=== PATIENT | female | born 1950 | race Caucasian/White ===

== ENCOUNTER → 2019-10-07 | Outpatient (CLI) | payer MEDICARE, OTHER ==
[~2019-10-07] MED LIST: AMLO25TA PO; B-12100021 PO; CATA0.2T PO; COLE1TA PO; LEVO50TA5 PO; LOSA50TA88 PO; MELA5CAP2 PO; MELO15TA28 PO; METO1TAB87 PO; MULTCAP PO; OMEP40CA97 PO; SERT-141 PO; SUCR1TA PO; VALA1TAB5 PO; VITA50005 PO; ZETI10TA16 PO
--- NOTE | 2019-10-07 16:07 | REP ---
Clinical: Melena. Diarrhea. Technique: Single supine view of the abdomen and pelvis. Findings: Bowel gas pattern is nonspecific. No organomegaly. Skeletal structures are intact. Calcifications in the pelvis suggest small fibroid and phleboliths. Impression: Nonspecific bowel gas pattern. Electronically Signed by Van Morin MD 10/07/2019 03:59 P
[2019-10-07 16:38] LABS: BASO % 0.6 % (0.0-1.0); EOS # 0.1 10^3/uL (0.0-0.5); EOS % 2.2 % (0.0-3.0); HEMATOCRIT 38.6 % (36.0-47.0); HEMOGLOBIN 12.7 g/dl (12.0-15.5); LYMPH # 1.5 10^3/uL (1.5-5.0); LYMPH % 29.2 % (24.0-44.0); MEAN CORPUSCULAR HGB CONC 32.9 g/dl (32.0-36.5); MEAN CORPUSCULAR VOLUME 94.1 fl (80.0-96.0); MONO # 0.4 10^3/uL (0.0-0.8); MONO % 8.5 % (0.0-5.0); NEUTROPHILS # 2.9 10^3/uL (1.5-8.5); NEUTROPHILS % 58.3 % (36.0-66.0); PLATELET COUNT, AUTOMATED 211 10^3/uL (150-450)
[2019-10-07 17:02] LABS: ALBUMIN 3.7 GM/DL (3.2-5.2); BILIRUBIN,TOTAL 0.3 MG/DL (0.2-1.0); CALCIUM LEVEL 8.8 MG/DL (8.8-10.2); CREATININE FOR GFR 1.27 MG/DL (0.55-1.30); GLOMERULAR FILTRATION RATE 44.3 (>39); TOTAL PROTEIN 7.8 GM/DL (6.4-8.2)
== END ==
LOC: M WUC 15:33
PROVIDERS: ATTEND Physician Assistant
DX: K92.1 Melena (principal); R19.7 Diarrhea, unspecified

== ENCOUNTER 2019-10-11 08:36 | Emergency (ER) | payer MEDICARE, OTHER ==
[~2019-10-11] VITALS: Ht 167.6 cm; Wt 64.5 kg
[2019-10-11] MEDS ORDERED: MELA5CAP2 PO (08:54)
[2019-10-11] MEDS ORDERED: COLE1TA PO (08:54)
[2019-10-11] MEDS ORDERED: VITA50005 PO (08:54)
[2019-10-11] MEDS ORDERED: ZETI10TA16 PO (08:54)
[2019-10-11] MEDS ORDERED: MULTCAP PO (08:54)
[2019-10-11] MEDS ORDERED: AMLO25TA PO (08:54)
[2019-10-11] MEDS ORDERED: OMEP40CA97 PO (08:54)
[2019-10-11] MEDS ORDERED: LEVO50TA5 PO (08:54)
[2019-10-11] MEDS ORDERED: VALA1TAB5 PO (08:54)
[2019-10-11] MEDS ORDERED: B-12100021 PO (08:54)
[2019-10-11] MEDS ORDERED: METO1TAB87 PO (08:54)
[2019-10-11] MEDS ORDERED: CATA0.2T PO (08:54)
[2019-10-11] MEDS ORDERED: LOSA50TA88 PO (08:54)
[2019-10-11] MEDS ORDERED: MELO15TA28 PO (08:54)
[2019-10-11] MEDS ORDERED: SERT-141 PO (08:54)
[2019-10-11 10:04] LABS: BASO % 0.3 % (0.0-1.0); EOS # 0.1 10^3/uL (0.0-0.5); EOS % 1.2 % (0.0-3.0); HEMATOCRIT 41.8 % (36.0-47.0); HEMOGLOBIN 14.2 g/dl (12.0-15.5); LYMPH # 1.3 10^3/uL (1.5-5.0); LYMPH % 20.6 % (24.0-44.0); MEAN CORPUSCULAR HEMOGLOBIN 31.3 pg (27.0-33.0); MEAN CORPUSCULAR VOLUME 92.3 fl (80.0-96.0); MONO # 0.4 10^3/uL (0.0-0.8); MONO % 6.7 % (0.0-5.0); NEUTROPHILS # 4.3 10^3/uL (1.5-8.5); PLATELET COUNT, AUTOMATED 216 10^3/uL (150-450); RED BLOOD COUNT 4.53 10^6/uL (4.00-5.40); WHITE BLOOD COUNT 6.1 10^3/uL (4.0-10.0)
[2019-10-11 10:14] LABS: INR 1.01
[2019-10-11 10:15] LABS: PARTIAL THROMBOPLASTIN TIME 26.9 SECONDS (25.0-38.4)
[2019-10-11 10:26] LABS: ALBUMIN 4.1 GM/DL (3.2-5.2); BILIRUBIN,DIRECT 0.2 MG/DL (0.0-0.2); BILIRUBIN,TOTAL 0.6 MG/DL (0.2-1.0); TOTAL PROTEIN 8.2 GM/DL (6.4-8.2)
[2019-10-11] MEDS ORDERED: ISOVUE-370 76% 100ML VIAL As Ordered ONE (11:17)
--- NOTE | 2019-10-11 13:33 | REP ---
CHEST, SINGLE VIEW: Single view of the chest is performed. No acute infiltrate is seen. There is minimal biapical pleural thickening. The heart is not enlarged. There is mild tortuosity of the thoracic aorta. Metallic plate and screws are seen in the lower cervical spine. IMPRESSION: No acute pulmonary disease. Electronically Signed by Luis Camacho MD 10/11/2019 07:38 P
[2019-10-11 14:25] VITALS: BP 151/69
[2019-10-11] MEDS ORDERED: SUCR1TA PO (14:41)
--- NOTE | 2019-10-11 15:48 | REP ---
REASON FOR EXAM: Abdominal pain. No priors for comparison. CONTRAST: 100 mL Isovue 370. For description of the lung bases see CT chest the same day. The liver, gallbladder, spleen, pancreas, and adrenal glands are within normal limits. There is right renal scarring. There is left-sided hydronephrosis without hydroureter. There are no nephroliths or calculi in the left renal collecting system. There are no urinary or bladder calcifications. There are bilateral pelvic phleboliths. The abdominal aorta and paraaortic regions are within normal limits. There is no free fluid or free air in the abdomen or pelvis. Limited evaluation of the intra-abdominal and intrapelvic bowel loops and their mesenteries show no gross abnormalities. Bone window technique through the examination shows the osseous structures to be within normal limits for the patient's age. IMPRESSION: 1. Left-sided hydronephrosis possibly secondary to functional UPJ configuration or from proximal ureteral obstruction due to a different etiology. There is no hydroureter and there are no abnormal calculi. 2. Right renal scarring, which is chronic. 3. Other findings as described above. Electronically Signed by Mike Cook DO 10/11/2019 05:29 P
--- NOTE | 2019-10-11 15:58 | REP ---
CT ANGIOGRAM CHEST: TECHNIQUE: Axial contrast-enhanced images from the thoracic inlet to the upper abdomen using 100 mL Isovue-370 intravenous contrast material with multiplanar reformations. There is no CT evidence of pulmonary embolism. There is no thoracic aortic aneurysm or dissection. The heart is not enlarged. There is no pleural or pericardial effusion. There is no significant mediastinal, hilar or chest wall lymphadenopathy. There is a small hiatal hernia. There are mild diffuse interstitial fibrotic changes with dependent fibroatelectasis in the left posterior costophrenic sulcus. There is mild biapical pleural thickening. There are several bilateral subcentimeter nodular opacities present. In the right upper lobe on image 24, there is a 6 mm nodule, also in the right upper lobe on image 28, there is a 6 mm nodule, in the right lower lobe posteriorly, there is a 5 mm nodular density on image 43 and another 6 mm nodular density, which is pleural-based in the right lower lobe on imaged 60. In the left upper lobe, there is a 3 mm nodular density on image 19, in the left lower lobe along the major fissure laterally there is a 4 mm nodular density on image 37, in the lingula on image 71, there is a 3 mm nodular density. There are degenerative change of the spine. Metallic plate and screws are seen in the lower cervical spine. IMPRESSION: No CT evidence of pulmonary embolism or aortic dissection. Small hiatal hernia. Several subcentimeter nodules in the lungs. Largest is 6 mm in diameter. Recommend followup CT in 3-6 months. Electronically Signed by Luis Camacho MD 10/11/2019 07:51 P
--- NOTE | 2019-10-11 21:20 | ECGEPIP ---
[facility] - ED Test Date: 2019-10-11 Pat Name: CARLEY DOWNEY Department: Room: - Gender: Female [employer] Administrator: Rivera CASTANON : 1950 Requested By: YESENIA Rincon Order Number: [id number] Reading MD: Wali Herrera Measurements Intervals [place] Rate: 64 P: 55 ID: [id number] QRS: 64 QRSD: 81 T: 48 QT: 386 QTc: 399 Interpretive Statements SINUS RHYTHM NO PRIORS FOR COMPARISON Electronically Signed on 10-11-2019 21:20:46 EDT by Wali Herrera
--- NOTE | 2019-10-13 15:19 | ED PDOC ---
Post-Departure Follow-Up izabela gordon faxed formal report of cta chest for fu Jane Mason MD Oct 13, 2019 15:19
== END 2019-10-11 14:51 | disposition home or self-care (01) ==
LOC: M ED 08:36
DX: I87.8 Other specified disorders of veins (principal); N28.89 Other specified disorders of kidney and ureter; R91.8 Other nonspecific abnormal finding of lung field; N13.30 Unspecified hydronephrosis; K21.0 Gastro-esophageal reflux disease with esophagitis; K52.9 Noninfective gastroenteritis and colitis, unspecified; I10 Essential (primary) hypertension; G47.33 Obstructive sleep apnea (adult) (pediatric); Z79.899 Other long term (current) drug therapy
CPT/HCPCS: 36415; 71045; 71275; 74177; 80047; 80076; 81001; 82150; 83605; 83690; 84484; 85025; 85610; 85730; 86850; 86900; 86901; 93005; 93041; 99284; Q9967

== ENCOUNTER → 2019-10-25 | Outpatient (REF) | payer MEDICARE, OTHER ==
[~2019-10-25] MED LIST changes: +FAMO20TA PO; +PANT40TA29 PO
== END ==
LOC: M LAB REF 11:18
PROVIDERS: ATTEND Physician Assistant
DX: R19.7 Diarrhea, unspecified (principal)

== ENCOUNTER → 2019-11-25 | Outpatient (CLI) | payer MEDICARE, OTHER | LOC: M LABSMTC 09:50 | PROVIDERS: ATTEND Anesthesiology | DX: Z01.812 Encounter for preprocedural laboratory examination (principal); Z20.828 Contact with and (suspected) exposure to other viral communicable diseases ==

== ENCOUNTER 2019-11-30 08:04 | Day surgery (SDC) | payer MEDICARE, OTHER ==
[~2019-11-30] VITALS: Ht 167.6 cm; Wt 63.0 kg
[~2019-11-30 08:04] MED LIST changes: +LIDOCAINE 2% 100MG/5ML SDV (FOR ANES.) As Ordered ONE; +NS 1,000 ML IV ONE; +propofoL 200 MG/20 ML VIAL As Ordered ONE
[2019-11-30] MEDS ORDERED: ePHEDrine SULFATE 25 MG/5 ML(5MG/ML) SYRINGE As Ordered ONE (09:36)
[2019-11-30 10:20] VITALS: BP 124/72
--- NOTE | 2019-12-14 11:30 | ROOR ---
Patient Name: Barbra Cornejo Procedure Date: 11/30/2019 8:32 AM Date of : 1950 Age: 69 Room: [facility] Gender: Female Note Status: Finalized Procedure: Upper GI endoscopy Indications: Heartburn, Suspected esophageal reflux, Abdominal bloating Providers: Eran Tomlinson MD Referring MD: 1. No Referring Physician 1. No Referring Physician, Admin. Requesting Provider: Medicines: Monitored Anesthesia Care Complications: No immediate complications. Procedure: Pre-Anesthesia Assessment: - Prior to the procedure, a History and Physical was performed, and patient medications and allergies were reviewed. The patient is competent. The risks and benefits of the procedure and the sedation options and risks were discussed with the patient. All questions were answered and informed consent was obtained. Patient identification and proposed procedure were verified by the physician, the nurse and the anesthesiologist in the endoscopy suite. Mental Status Examination: alert and oriented. Airway Examination: normal oropharyngeal airway and neck mobility. Respiratory Examination: clear to auscultation. CV Examination: normal. Prophylactic Antibiotics: The patient does not require prophylactic antibiotics. Prior Anticoagulants: The patient has taken no previous anticoagulant or antiplatelet agents. ASA Grade Assessment: III - A patient with severe systemic disease. After reviewing the risks and benefits, the patient was deemed in satisfactory condition to undergo the procedure. The anesthesia plan was to use monitored anesthesia care (MAC). Immediately prior to administration of medications, the patient was re-assessed for adequacy to receive sedatives. The heart rate, respiratory rate, oxygen saturations, blood pressure, adequacy of pulmonary ventilation, and response to care were monitored throughout the procedure. The physical status of the patient was re-assessed after the procedure. The Endoscope was introduced through the mouth, and advanced to the second part of duodenum. The upper GI endoscopy was accomplished without difficulty. The patient tolerated the procedure well. Findings: A small hiatal hernia was present. The Z-line was regular and was found 37 cm from the incisors. This was biopsied with a cold forceps for histology. Estimated blood loss was minimal. Diffuse mild mucosal changes characterized by flattening, granularity and nodularity were found in the gastric body and in the gastric antrum. Biopsies were taken with a cold forceps for Helicobacter pylori testing. Estimated blood loss was minimal. The duodenal bulb, first portion of the duodenum and second portion of the duodenum were normal. Impression: - Small hiatal hernia. - Z-line regular, 37 cm from the incisors. Biopsied. - Flattened, granular and nodular mucosa in the gastric body and antrum. Biopsied. - Normal duodenal bulb, first portion of the duodenum and second portion of the duodenum. Recommendation: - Discharge patient to home (ambulatory). - Continue present medications. - Await pathology results. - Telephone my office for pathology results in 1 week. Eran Tomlinson MD 11/30/2019 9:55:58 AM Number of Addenda: 0 Note Initiated On: 11/30/2019 8:32 AM Estimated Blood Loss: Estimated blood loss was minimal.
--- NOTE | 2019-12-14 11:30 | ROOR ---
Patient Name: Barbra Cornejo Procedure Date: 11/30/2019 8:31 AM Date of : 1950 Age: 69 Room: [facility] Gender: Female Note Status: Finalized Procedure: Colonoscopy Indications: Generalized abdominal pain, Change in bowel habits, Chronic diarrhea Providers: Eran Tomlinson MD Referring MD: 1. No Referring Physician 1. No Referring Physician, Admin. Requesting Provider: Medicines: Monitored Anesthesia Care Complications: No immediate complications. Procedure: Pre-Anesthesia Assessment: - Prior to the procedure, a History and Physical was performed, and patient medications and allergies were reviewed. The patient is competent. The risks and benefits of the procedure and the sedation options and risks were discussed with the patient. All questions were answered and informed consent was obtained. Patient identification and proposed procedure were verified by the physician, the nurse and the anesthesiologist in the endoscopy suite. Mental Status Examination: alert and oriented. Airway Examination: normal oropharyngeal airway and neck mobility. Respiratory Examination: clear to auscultation. CV Examination: normal. Prophylactic Antibiotics: The patient does not require prophylactic antibiotics. Prior Anticoagulants: The patient has taken no previous anticoagulant or antiplatelet agents. ASA Grade Assessment: III - A patient with severe systemic disease. After reviewing the risks and benefits, the patient was deemed in satisfactory condition to undergo the procedure. The anesthesia plan was to use monitored anesthesia care (MAC). Immediately prior to administration of medications, the patient was re-assessed for adequacy to receive sedatives. The heart rate, respiratory rate, oxygen saturations, blood pressure, adequacy of pulmonary ventilation, and response to care were monitored throughout the procedure. The physical status of the patient was re-assessed after the procedure. The Colonoscope was introduced through the anus and advanced to the terminal ileum, with identification of the appendiceal orifice and IC valve. The colonoscopy was performed without difficulty. The patient tolerated the procedure well. The quality of the bowel preparation was good. Findings: Hemorrhoids were found on perianal exam. The colon (entire examined portion) appeared normal. This was biopsied with a cold forceps for evaluation of microscopic colitis. Estimated blood loss was minimal. The terminal ileum appeared normal. This was biopsied with a cold forceps for evaluation of celiac disease. Impression: - Hemorrhoids found on perianal exam. - The entire examined colon is normal. Biopsied. - The examined portion of the ileum was normal. Biopsied. Recommendation: - Discharge patient to home (ambulatory). - High fiber diet indefinitely. Eran Tomlinson MD 11/30/2019 10:00:30 AM Number of Addenda: 0 Note Initiated On: 11/30/2019 8:31 AM Estimated Blood Loss: Estimated blood loss was minimal.
== END 2019-11-30 10:32 | disposition home or self-care (01) ==
LOC: M OPP 08:04
PROVIDERS: ATTEND Surgery
DX: K64.8 Other hemorrhoids (principal); R10.84 Generalized abdominal pain; R19.4 Change in bowel habit; R50.9 Fever, unspecified; K44.9 Diaphragmatic hernia without obstruction or gangrene; K31.89 Other diseases of stomach and duodenum; R12 Heartburn; R14.0 Abdominal distension (gaseous); G47.30 Sleep apnea, unspecified; K21.9 Gastro-esophageal reflux disease without esophagitis; Z79.899 Other long term (current) drug therapy

== ENCOUNTER → 2020-08-31 | Outpatient (REF) | payer MEDICARE, OTHER ==
[~2020-08-31] MED LIST changes: -LIDOCAINE 2% 100MG/5ML SDV (FOR ANES.) As Ordered ONE; -NS 1,000 ML IV ONE; -propofoL 200 MG/20 ML VIAL As Ordered ONE
== END ==
LOC: M LAB REF 09:52
PROVIDERS: ATTEND Physician Assistant
DX: R19.7 Diarrhea, unspecified (principal)

== ENCOUNTER 2020-09-07 09:21 | Emergency (ER) | payer MEDICARE, OTHER ==
[~2020-09-07] VITALS: Ht 165.1 cm; Wt 63.4 kg
[2020-09-07 09:21] VITALS: BP 147/68
[2020-09-07] MEDS ORDERED: ZOLO50TA PO (09:37)
[2020-09-07] MEDS ORDERED: FAMO20TA PO (09:37)
[2020-09-07] MEDS ORDERED: CLON0.2T PO (09:37)
[2020-09-07] MEDS ORDERED: VALA1TAB5 PO ×2 (09:37)
[2020-09-07] MEDS ORDERED: OMEP40CA97 PO (09:37)
[2020-09-07] MEDS ORDERED: CELE1CAP9 PO (09:37)
[2020-09-07] MEDS ORDERED: DICY10CA13 PO (09:38)
[2020-09-07 10:49] LABS: BASO % 0.4 % (0.0-1.0); EOS # 0.1 10^3/uL (0.0-0.5); EOS % 1.2 % (0.0-3.0); HEMATOCRIT 40.4 % (36.0-47.0); HEMOGLOBIN 13.5 g/dl (12.0-15.5); LYMPH # 1.2 10^3/uL (1.5-5.0); MEAN CORPUSCULAR HGB CONC 33.4 g/dl (32.0-36.5); MEAN CORPUSCULAR VOLUME 92.9 fl (80.0-96.0); MONO # 0.4 10^3/uL (0.0-0.8); NEUTROPHILS # 3.4 10^3/uL (1.5-8.5); NEUTROPHILS % 67.2 % (36.0-66.0); PLATELET COUNT, AUTOMATED 218 10^3/uL (150-450); RED BLOOD COUNT 4.35 10^6/uL (4.00-5.40)
[2020-09-07 11:18] LABS: ALBUMIN 3.7 GM/DL (3.2-5.2); BILIRUBIN,DIRECT 0.1 MG/DL (0.0-0.2); BILIRUBIN,TOTAL 0.4 MG/DL (0.2-1.0); TOTAL PROTEIN 7.6 GM/DL (6.4-8.2)
== END 2020-09-07 11:47 | disposition home or self-care (01) ==
LOC: M ED 09:21
DX: R19.7 Diarrhea, unspecified (principal); K21.9 Gastro-esophageal reflux disease without esophagitis; I10 Essential (primary) hypertension; E03.9 Hypothyroidism, unspecified; E78.5 Hyperlipidemia, unspecified; Z79.899 Other long term (current) drug therapy

== ENCOUNTER → 2020-11-20 | Outpatient (REF) | payer MEDICARE, OTHER ==
[~2020-11-20] MED LIST changes: +CELE1CAP9 PO; +CLON0.2T PO; +DICY10CA13 PO; +ERGO500029 PO; +OMEP40CA4 PO; -OMEP40CA97 PO; -VITA50005 PO; +ZOLO50TA PO
== END ==
LOC: M LAB REF 10:04
PROVIDERS: ATTEND Internal Medicine Gastroenterology
DX: R19.5 Other fecal abnormalities (principal)

== ENCOUNTER → 2020-12-26 | Outpatient (CLI) | payer MEDICARE, OTHER ==
[2020-12-26 14:12] LABS: CREATININE FOR GFR 1.1 MG/DL (0.55-1.30); GLOMERULAR FILTRATION RATE 52.1 (>39); IMMUNOGLOBULIN A 95.1 MG/DL (70-400)
== END ==
LOC: M LAB 12:21
PROVIDERS: ATTEND Internal Medicine Gastroenterology
DX: R19.7 Diarrhea, unspecified (principal)

== ENCOUNTER → 2021-01-04 | Outpatient (CLI) | payer MEDICARE, OTHER ==
[~2021-01-04] MED LIST changes: +GLUCAGON INJ 1MG VIAL As Ordered ONE; +ISOVUE-370 76% 100ML VIAL As Ordered ONE; +NEULUMEX 0.1% SUSPENSION 450ML BOTTLE (FORMERLY VOLUMEN) As Ordered ONE
--- NOTE | 2021-01-04 15:24 | REP ---
INDICATION: DIARRHEA, NONINFECTIVE GASTROENTERITIS AND COLITIS. COMPARISON: Comparison CT study November 17, 2019. TECHNIQUE: The patient ingested oral Volumen for PO contrast per protocol. 0.6 mg of intravenous glucagon is administered. 100 ml of Isovue 370 is given intravenously for intravenous contrast. Helical scanning is acquired. Arterial phase and delayed phase imaging was acquired. Thick slab coronal and sagittal MIP images are generated. In addition coronal and sagittal multiplanar re-formation images are generated and reviewed along with axial images. FINDINGS: Preliminary digital power plant assistant radiograph is unremarkable. Axial images through the lung bases show that they are clear. There is no evidence of pleural effusion or upper abdominal ascites. The liver and the spleen are normal in size homogeneous in texture. No abnormality is noted in the gallbladder or the pancreas. Normal adrenal glands are seen bilaterally. There is a a fairly large parapelvic cyst in the left kidney which is unchanged from the prior study of November 17, 2019. There is moderate focal cortical scarring and atrophy of the lateral cortex of the right kidney both upper, mid and lower pole. This is also unchanged. No hydronephrosis is evident. No retroperitoneal mass or adenopathy is seen. No visceral arterial abnormality is observed. There is good labeling of the gastrointestinal tract lumen. There is no evidence of hyperenhancement or absent enhancement of bowel wall to suggest ischemia.. No gastrointestinal mass lesion is observed. No obstructive lesion is seen. The appendix is normal in appearance. Urinary bladder is unremarkable. There are calcifications denoting small fibroids in the uterus. The uterus is not enlarged. No ovarian abnormality is appreciated. IMPRESSION: No morphologic abnormality is noted in the gastrointestinal tract. No visceral arterial abnormality is seen. There is old cortical scarring of the right kidney. Parapelvic cyst left kidney. <Electronically signed by Ehsan Gerber > 01/04/21 0140
== END ==
LOC: M RAD 13:09
PROVIDERS: ATTEND Internal Medicine Gastroenterology
DX: K52.9 Noninfective gastroenteritis and colitis, unspecified (principal); R19.5 Other fecal abnormalities
CPT/HCPCS: 74177; J1610; Q9967

== ENCOUNTER → 2023-08-11 | Outpatient (REF) | payer MEDICARE, OTHER ==
[~2023-08-11] MED LIST changes: +CELE0.09 PO; -CELE1CAP9 PO; +DICY-61 PO; -DICY10CA13 PO; +EZET10TA58 PO; -GLUCAGON INJ 1MG VIAL As Ordered ONE; -ISOVUE-370 76% 100ML VIAL As Ordered ONE; +LOSA50TA28 PO; -LOSA50TA88 PO; -NEULUMEX 0.1% SUSPENSION 450ML BOTTLE (FORMERLY VOLUMEN) As Ordered ONE; -ZETI10TA16 PO
== END ==
LOC: M LAB REF 12:33
PROVIDERS: ATTEND Internal Medicine Gastroenterology
DX: K59.1 Functional diarrhea (principal); R63.4 Abnormal weight loss

== ENCOUNTER → 2024-12-07 | Outpatient (CLI) | payer MEDICARE, OTHER ==
[~2024-12-07] MED LIST changes: +ONDA-282 PO; +SUCR1SS PO
[2024-12-07 15:35] LABS: CALCIUM LEVEL 9.6 MG/DL (8.3-10.6); CARBON DIOXIDE LEVEL 26.0 MMOL/L (20-31); CHLORIDE LEVEL 100.0 MMOL/L (98-107); CREATININE FOR GFR 1.0 MG/DL (0.55-1.30); GLOMERULAR FILTRATION RATE 58.8 (>39); POTASSIUM SERUM 3.7 MMOL/L (3.5-5.1); SODIUM LEVEL 141.0 MMOL/L (136-145)
== END ==
LOC: M WUC 11:16
PROVIDERS: ATTEND Nurse Practitioner Family
DX: K52.9 Noninfective gastroenteritis and colitis, unspecified (principal); E07.9 Disorder of thyroid, unspecified

== ENCOUNTER 2024-12-08 16:34 | Emergency (ER) | payer MEDICARE, OTHER ==
[~2024-12-08] VITALS: Ht 167.6 cm; Wt 58.7 kg
[~2024-12-08 16:34] MED LIST changes: -ONDA-282 PO; -SUCR1SS PO
[2024-12-08 17:55] LABS: BASO # 0.0 10^3/uL (0.0-0.2); BASO % 0.6 % (0.0-1.0); EOS # 0.1 10^3/uL (0.0-0.5); EOS % 2.1 % (0.0-3.0); LYMPH # 2.3 10^3/uL (1.5-5.0); LYMPH % 36.5 % (24.0-44.0); MONO # 0.8 10^3/uL (0.0-0.8); MONO % 12.2 % (2.0-8.0); NEUTROPHILS # 3.0 10^3/uL (1.5-8.5); NEUTROPHILS % 48.4 % (36.0-66.0); PLATELET COUNT, AUTOMATED 196 10^3/uL (150-450)
[2024-12-08 18:16] LABS: ALT/SGPT 21.0 U/L (7.0-40); AST/SGOT 27.0 U/L (<34); CALCIUM LEVEL 9.6 MG/DL (8.3-10.6); CARBON DIOXIDE LEVEL 24.0 MMOL/L (20-31); CHLORIDE LEVEL 100.0 MMOL/L (98-107); CREATININE FOR GFR 1.03 MG/DL (0.55-1.30); GLOMERULAR FILTRATION RATE 56.7 (>39); POTASSIUM SERUM 3.8 MMOL/L (3.5-5.1); SODIUM LEVEL 140.0 MMOL/L (136-145)
[2024-12-08] MEDS ORDERED: ISOVUE-370 76% 100 ML VIAL As Ordered ONE (21:20)
[2024-12-08] MEDS: MAALOX 30 ML SUSP *UDC PO ONE (22:10)
[2024-12-08] MEDS: SUCRALFATE SUSP 1GM/10ML UD PO ONE (22:10)
[2024-12-08] MEDS: LIDOCAINE VISCOUS 2% SOLN 15 ML UDC PO ONE (22:10)
[2024-12-09] MEDS ORDERED: ONDA-282 PO (00:56)
[2024-12-09] MEDS ORDERED: SUCR1SS PO (00:56)
[2024-12-09 01:28] VITALS: BP 132/65; TEMP 97.8; O2SAT 99
== END 2024-12-09 01:35 | disposition home or self-care (01) ==
LOC: M ED 16:34
DX: R11.10 Vomiting, unspecified (principal); R19.7 Diarrhea, unspecified; Q62.11 Congenital occlusion of ureteropelvic junction; K76.0 Fatty (change of) liver, not elsewhere classified; K21.9 Gastro-esophageal reflux disease without esophagitis; I10 Essential (primary) hypertension; Z79.899 Other long term (current) drug therapy; Z79.83 Long term (current) use of bisphosphonates
CPT/HCPCS: 36415; 74177; 80048; 80076; 83690; 85025; 99285; Q9967